=== PATIENT | female | born 1970 | race American Indian/Alaskan Native ===

== ENCOUNTER 2017-01-05 06:03 | Day surgery (SDC) | payer BC ==
[2017-01-04 09:23] VITALS: BMI 32.6
[2017-01-05 06:36] VITALS: RESP 20
[2017-01-05] MEDS ORDERED: Lactated Ringer's 1,000 ML IV ONE (06:43)
--- NOTE | 2017-01-05 07:04 | CP.SDSHP ---
Same Day Surgery H & P - History Proposed Procedure: Left foot 4th and 5th digit Hammertoe arthroplasty. 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 Previous Surgical History: Denies major surgery - Allergies Allergies: Allergies No Known Allergies Allergy (Verified 01/04/17 09:23) - Current Medications Current Medications: None. - Physical Exam Vital Signs: Vital Signs 01/05/17 01/05/17 06:34 06:38 Temperature 98.4 F Pulse Rate 67 67 Respiratory 20 Rate Blood Pressure 145/91 H O2 Sat by Pulse 98 Oximetry Neuro: WNL Heart: WNL Lungs: WNL GI: WNL - {Optional Preform as Required} Integument: WNL Ortho: WNL (Left 4th and 5th digit semi-reducible PIPJ hammertoe contractures with accompanying dorsal joint calloused tissue. Decreased arch height) - Impression Impression: Pt was seen and examined in SDS. Pt NPO status was confirmed. All Pre-op testing and clearance was in the chart. Pt has exhausted all conservative treatment at this time and is opting for surgical intervention. Pt was explained procedure and post-operative course. All pt's questions were answered to satisfaction. No guarantees were made. Pt understands all risks, benefits and complications of procedure. Pt will follow-up with Dr. Miguel. Pt. Evaluated Today:Candidate for Anesthesia & Procedure: Yes - Date & Time Date: 01/05/17 Time: 07:10 Short Stay Discharge - Short Stay Discharge Admitting Diagnosis/Reason for Visit: M30.42 Disposition: HOME/ ROUTINE Medications: Cephalexin [cephalexin] 500 mg PO BID #21 cap Ibuprofen [Motrin] 400 mg PO PRN PRN #30 tab PRN Reason: Pain, Mild (1-3) Referrals: Wilil Miguel DPM [Primary Care Provider] - Follow-up: Follow-up in office in 1 week for post-operative chack. Instructions: RICE Therapy (GEN), Ibuprofen (By mouth), Cephalexin (By mouth) Additional Instructions (Diet, Activity): Patient in good/stable condition for discharge home. Pt to resume medications per medical reconciliation. Resume regular diet. Please keep dressing clean, dry, & intact to surgical site, use plastic bag over bandage for showering, wear post op shoe at all times when ambulating, call office if you see signs of infection (redness, swelling, malodor), please make an appointment to see Dr. Miguel in office/clinic within 1 week for post-op check. Progress Note/Discharge Note with Instructions: - Patient evaluated bedside in recovery s/p surgical procedure. - After surgical procedure patient in NAD - (+) Void, (+) Appetite - Capillary refill time <3s and NVSI intact. - Patient denies complaints at this time - Post operative instructions and plan of care explained to patient at length. - Pt. acknowledges understanding. - Patient stable for DC per podiatric surgery
--- NOTE | 2017-01-05 07:04 | CP.PCM.PN ---
Subjective - Date & Time of Evaluation Date of Evaluation: 01/05/17 Time of Evaluation: 07:17 - Subjective Subjective: 46 year old female present for surgical correction of left foot painul hammertoe deformities. Pt reports pain a a persistent 3/10 during ambulation. Pt reports she has has been NPO since 10Pm, yesterday evening. Pt deneis recent f/c/cp/sob/v/n. Objective - Vital Signs/Intake and Output Vital Signs (last 24 hours): Temp Pulse Resp BP Pulse Ox 98.4 F 67 20 145/91 H 98 01/05/17 06:34 01/05/17 06:38 01/05/17 06:34 01/05/17 06:34 01/05/17 06:34 - Constitutional Appears: Well, Non-toxic, No Acute Distress - Extremities Exam Additional comments: Left foot focused. Neuro-vascular status intact to level of digits. PT and DP pedal pulses are fully palpable, graded 1/4 and 2/4 respectively. Left 4th and 5th digit semi-reducible PIPJ hammertoe contractures with accompanying dorsal joint calloused tissue. Decreased arch height. - Neurological Exam Neurological Exam: Alert, Awake, Oriented x3 - Skin Skin Exam: Intact, Normal Color, Warm Assessment and Plan - Assessment and Plan (Free Text) Assessment: 46 year old female with painful left 4th and 5th digit PIPJ hammertoe contractures. Plan: Pt was seen and examined in SDS Pt NPO status was confirmed All Pre-op testing and clearance was in the chart Pt has exhausted all conservative treatment at this time and is opting for surgical intervention Pt was explained procedure and post-operative course All pt's questions were answered to satisfaction No guarantees were made Pt understands all risks, benefits and complications of procedure Pt will follow-up with Dr. Miguel.
[2017-01-05] MEDS ORDERED: Bupivacaine 0.5% Inj(30mL) ONE (07:18)
[2017-01-05] MEDS ORDERED: Lidocaine 1% Inj (20ml) ONE (07:18)
[2017-01-05] MEDS ORDERED: Propofol 10 mg/ml Inj (20 ML) ONE (07:24)
[2017-01-05] MEDS ORDERED: Midazolam 2 MG/2 ML VIAL ONE (07:24)
[2017-01-05] MEDS ORDERED: Lidocaine 1% Inj (20ml) IJ ONE (08:10)
[2017-01-05] MEDS ORDERED: Bupivacaine 0.5% 50 ML IJ ONE (08:10)
[2017-01-05] MEDS ORDERED: Lactated Ringer's 1,000 ML IV SCH (08:39)
[2017-01-05] MEDS ORDERED: DiphenhydrAMINE 50 mg/ml Inj IVP PRN (08:39)
[2017-01-05] MEDS ORDERED: Triamcinolone Acetonide 40 mg/mL Inj ONE (08:51)
[2017-01-05] MEDS ORDERED: Triamcinolone Acetonide 40 mg/mL Inj IM ONE (09:00)
[2017-01-05] MEDS ORDERED: Oxycodone/Acetaminophen 5/325 mg Tab PO PRN ×2 (09:22)
--- NOTE | 2017-01-05 09:27 | PCM.SURG1 ---
Surgeon's Initial Post Op Note - Surgeon's Notes Surgeon: Dr. Miguel Sales Coordinator: Dr. Devine, PGY-1 Type of Anesthesia: General LMA, Local Pre-Operative Diagnosis: painful hammertoe deformity left 4th and 5th digit Operative Findings: see operative report Post-Operative Diagnosis: same Operation Performed: PIPJ arthroplasty with screw fixation left 4th digit, PIPJ arthroplasty left 5th digit Specimen/Specimens Removed: none Estimated Blood Loss: EBL {In ML}: 1 Blood Products Given: N/A Drains Used: No Drains Post-Op Condition: Good Date of Surgery/Procedure: 01/05/17 Time of Surgery/Procedure: 08:00
[2017-01-05 09:45] VITALS: O2SAT 100
[2017-01-05 11:16] VITALS: BP 117/69; PULSE 65; TEMP 97.9
--- NOTE | 2017-01-06 18:45 | OP ---
PROCEDURE DATE: 01/05/2017 SURGEON: Dr. Miguel SEASONAL SALES ASSOCIATE: Dr. Huerta, PGY-1 CONSULTING SALES EXECUTIVE: Dr. Landeros ANESTHESIA: General LMA plus local. PREOPERATIVE DIAGNOSIS: Painful Hammertoe deformity, fourth and fifth digit, left foot. POSTOPERATIVE DIAGNOSIS: Painful Hammertoe deformity, fourth and fifth digit, left foot. NAME OF PROCEDURES: 1. PIPJ arthrodesis, left fourth digit with screw fixation. 2. PIPJ arthroplasty, left fifth digit. INDICATIONS: The patient is a 46-year-old female with the above diagnosis. The patient has exhausted all conservative treatment at this time and now requests surgical intervention. The patient signed the consent after careful explanation of risks, benefits, complications and alternatives for surgical procedure. Ancef 2 g IV were given to the patient one half hour prior to the procedure. No guarantees were given nor implied. PREPARATION: The patient was brought to the operating room and placed on the operating room table in a supine position. A well-padded pneumatic ankle tourniquet was applied to the patient's left ankle in the supramalleolar position. A timeout was performed for identification of the correct patient and procedure. The patient received a total of 20 mL of 0.5% Marcaine plain in a local block fashion to the left forefoot. Once local anesthesia was achieved , the left foot was then prepped and draped in normal sterile manner. The patient's left foot was then exsanguinated and the pneumatic ankle tourniquet was inflated to 250 mmHg and the procedure began. PROCEDURE #1: PIPJ arthrodesis, left fourth digit with screw fixation. Attention was then directed to the dorsal aspect of the fourth digit of the left foot where an approximately 2 cm linear longitudinal incision was made overlying the PIPJ of the fourth digit. The incision was then deepened through subcutaneous tissue with care being taken to identify and retract all vital neurovascular structures. All bleeders were cauterized and ligated as necessary. At this time, a transverse tenotomy and capsulotomy was performed at the PIPJ. The head of the proximal phalanx was then freed of its capsular ligamentous attachments. Next, utilizing an oscillating saw, the head of the proximal phalanx was resected and passed from the operative site. Using the oscillating saw, the base of the intermediate phalanx was then feathered to remove all cartilage. Next, a 0.045 inch K-wire was driven through the middle phalanx. The K-wire was then driven through the distal phalanx exiting the distal aspect of the fourth digit. The K-wire was then retrograded proximally into the remaining aspect of the proximal phalanx. Correction of the deformity was assessed at this time and was noted to be excellent and it was confirmed via intraoperative imaging. Next, a 2.0 mm x 32 mm headless OsteoMed screw was then inserted over the K-wire from distal to proximal across the PIPJ. Placement was then confirmed via intraoperative imaging and appeared to be in excellent alignment. The 0.045 K-wire was then removed from the fourth digit. The wound was then copiously flushed with sterile saline. The tendon was then reapproximated and sutured with #4-0 Vicryl. The skin was then reapproximated and sutured with #4-0 nylon. PROCEDURE #2: Left fifth digit PIPJ arthroplasty. Next, a 2 cm incision was made in the dorsal aspect of the proximal interphalangeal joint of the left fifth digit in a semielliptical type orientation. Sharp dissection was carried down to the deep tissues, being careful to identify and retract all vital neurovascular structures. All bleeders were ligated and cauterized. At this time, a transverse tenotomy and capsulotomy were performed to the proximal interphalangeal joint and the head of the proximal phalanx was then freed of its capsular ligamentous attachments. Next, utilizing the oscillating bone saw, the head of the proximal phalanx was resected and passed from the operative site. Correction of the deformity was assessed at this time and noted to be excellent. The surgical sites were then irrigated with copious amounts of normal sterile saline. The tendon was then reapproximated and sutured with #4-0 Vicryl. The forefoot was then injected with Kenalog 40 mg. The skin was then reapproximated and sutured with #4-0 nylon. The surgical sites were then dressed with Xeroform, 4 x 4 gauze, cling and coban. POSTOPERATIVE CONDITION: The patient tolerated the anesthesia and procedure well and was escorted to the recovery room with vital signs stable and neurovascular status intact to the left foot. This patient will be weightbearing as tolerated in a surgical shoe and will follow up with Dr. Miguel in office within 1 week. AIDEN HUERTA DPM Willi Miguel DPM cc: [id number] TT: 01/06/2017 18:44:23 en MTDD
== END 2017-01-05 11:30 | disposition home or self-care (01) ==
LOC: H.OPSURG 06:03 → MERGE 06:03 → H.OPSURG 11:30
PROVIDERS: ATTEND Podiatrist Foot & Ankle Surgery
DX: M20.42 Other hammer toe(s) (acquired), left foot (principal); E66.9 Obesity, unspecified
CPT/HCPCS: 28285; C1713; C1769; J0690; J2001; J2250; J2704; J3010; J3301; J7120